=== PATIENT | male | born 1960 | race Caucasian/White ===

== ENCOUNTER 2018-07-07 07:10 | Day surgery (SDC) | payer OTHER ==
[~2018-07-07 07:10] MED LIST: Lactated Ringers 1,000 ML IV SCH; Lidocaine 1%/Sod Bicarbonate in NS 8.4% 1 ML Syringe IDERM PRN; Sodium Chloride 0.9% 10 ML Syringe FLUSH PRN
--- NOTE | 2018-07-07 07:50 | PCM.PREANE ---
Preanesthetic Assessment - Procedure Proposed Procedure: screening colonoscopy - Anesthesia/Transfusion/Family Hx Anesthesia History: Prior Anesthesia Without Reaction Family History of Anesthesia Reaction: No Transfusion History: No Prior Transfusion(s) - Review of Systems General: No Symptoms Pulmonary: No Symptoms Cardiovascular: No Symptoms Gastrointestinal: No Symptoms Neurological: No Symptoms Other: Reports: None - Physical Assessment NPO Status Date: 07/07/18 NPO Status Time: 04:30 O2 Sat by Pulse Oximetry: 97 Respiratory Rate: 16 Vital Signs: Last Vital Signs Temp 97.9 F 07/07/18 07:15 Pulse 72 07/07/18 07:15 Resp 16 07/07/18 07:15 BP 134/101 H 07/07/18 07:15 Pulse Ox 97 07/07/18 07:15 Height: 5 ft 11 in Weight: 102.058 kg ASA Class: 2 Mental Status: Alert & Oriented x3 Airway Class: Mallampati = 1 Dentition: Reports: Missing Tooth/Teeth Thyro-Mental Finger Breadths: 3 Mouth Opening Finger Breadths: 3 ROM/Head Extension: Full Lungs: Clear to Auscultation, Normal Respiratory Effort Cardiovascular: Regular Rate, Regular Rhythm - Allergies Allergies/Adverse Reactions: Allergies Allergy/AdvReac Type Severity Reaction Status Date / Time No Known Allergies Allergy Verified 07/07/18 07:33 - Blood Blood Available: No - Acknowledgements Anesthesia Type Planned: MAC Pt an Appropriate Candidate for the Planned Anesthesia: Yes Alternatives and Risks of Anesthesia Discussed w Pt/Guardian: Yes Pt/Guardian Understands and Agrees with Anesthesia Plan: Yes PreAnesthesia Questionnaire HEENT History: Reports: Allergic Rhinitis Cardiovascular History: Reports: None Respiratory History: Reports: None Other Gastrointestinal History: GASTRIC ULCERS-1989- not now Endocrine/Metabolic History: Reports: Obesity/BMI 30+ Oncologic (Cancer) History: Reports: None Other Dermatologic History: ONYCHOMYCOSIS - Past Surgical History HEENT Surgical History: Reports: Adenoidectomy, Oral Surgery, Tonsillectomy - SUBSTANCE USE Smoking Status *Q: Never Smoker Tobacco Use Within Last Twelve Months: No Second Hand Smoke Exposure: Yes Days Per Week of Alcohol Use: 5 Number of Drinks Per Day: 3 (beer and whiskey) Total Drinks Per Week: 15 Recreational Drug Use History: No - HOME MEDS Home Medications: Home Meds Albuterol [Ventolin HFA] 1 inh INH ASDIRECTED 07/06/18 [History] - CURRENT (IN HOUSE) MEDS Current Meds: Current Medications Lactated Ringer's (Ringers, Lactated) 1,000 mls @ 125 mls/hr IV ASDIRECTED HUNTER Stop: 07/07/18 23:00 Last Admin: 07/07/18 07:30 Dose: 125 mls/hr Lidocaine/Sodium Bicarbonate (Buffered Lidocaine 1% In Ns 8.4%) 0.25 ml IDERM ONETIME PRN PRN Reason: Prior to IV Start Stop: 07/07/18 18:00 Last Admin: 07/07/18 07:30 Dose: 0.25 ml Sodium Chloride (Saline Flush) 10 ml FLUSH ASDIRECTED PRN PRN Reason: Keep Vein Open Stop: 07/07/18 18:00
[2018-07-07] MEDS ORDERED: Propofol 200 MG/20 ML SDV ONE ×2 (08:46→08:52)
[2018-07-07] MEDS ORDERED: Lidocaine 1% 2 ML ONE ×2 (08:51→08:52)
--- NOTE | 2018-07-07 09:21 | PCM.OPNOTE ---
- General Post-Op/Procedure Note Date of Surgery/Procedure: 07/07/18 Operative Procedure(s): colonoscopy with biopsy Findings: 1) sigmoid colon polyp, 5 mm, sessile, removed by cold forceps polypectomy 2) sigmoid colon polyp, 3 mm, sessile, removed by cold forceps polypectomy Pre Op Diagnosis: screening colonoscopy, average risk Post-Op Diagnosis: s/p colonoscopy with biopsy Anesthesia Technique: MAC Primary Surgeon: Franko Holbrook Anesthesia Provider: Veronika Winter Pathology: 1) sigmoid colon polyp #1 2) sigmoid colon polyp #2 Complications: None Condition: Good Free Text/Narrative:: Indications for surgery: The patient is 57 yo male, average risk for colorectal cancer, here for initial screening colonoscopy. The patient was consented for colonoscopy with possible biopsy. Indications, risks, and benefits were discussed with the patient in detail. Description of procedure: After surgical consent was verified, the patient was brought to the main OR. A surgical time-out was performed to verify proper patient and proper procedure. Anesthesia performed monitored anesthesia care. A digital rectal exam was performed, which was normal. The colonoscope was inserted into the anus and advanced through the colon to the cecum. The terminal ileum was intubated, and it appeared normal. Location of the cecum was confirmed by presence of the appendiceal orifice and by presence of the ileocecal valve. The scope was then withdrawn, with inspection of the colonic mucosa. There was a 5 mm sessile polyp in the sigmoid colon, removed by cold forceps polypectomy (sigmoid colon polyp #1). There was a 3 mm sessile polyp in the sigmoid colon, removed by cold forceps polypectomy (sigmoid colon polyp #2). Retroflexion was performed in the rectum. The remainder of the colon and rectum was normal. Withdrawal time was 12 minutes, including time spent performing colonoscopy. Blood loss was minimal. Prep was good. The patient tolerated the procedure well, was brought out of anesthesia, and transported to the PACU in stable condition. Franko Holbrook M.D., F.A.C.S. General Surgery Pager: [phone]
--- NOTE | 2018-07-07 09:23 | PCM48HPAN ---
Post Anesthesia Note - EVALUATION WITHIN 48HRS OF ANESTHETIC Vital Signs in Normal Range: Yes Patient Participated in Evaluation: Yes Respiratory Function Stable: Yes Airway Patent: Yes Cardiovascular Function Stable: Yes Hydration Status Stable: Yes Pain Control Satisfactory: Yes Nausea and Vomiting Control Satisfactory: Yes Mental Status Recovered: Yes Pulse Rate: 73 SaO2: 97 Resp Rate: 16 Temperature: 97.1 C Blood Pressure: 113/73
== END 2018-07-07 09:47 | disposition home or self-care (01) ==
LOC: JD.SDS 07:10
PROVIDERS: ATTEND Student in an Organized Health Care Education/Training Program
DX: Z12.11 Encounter for screening for malignant neoplasm of colon (principal); D12.5 Benign neoplasm of sigmoid colon; J30.9 Allergic rhinitis, unspecified; F17.200 Nicotine dependence, unspecified, uncomplicated
CPT/HCPCS: 45380; J2704; J7120; 00811; J2001